=== PATIENT | male | born 1960 | race Caucasian/White ===

== ENCOUNTER 2017-12-01 12:08 | Emergency (ER) | payer OTHER ==
[2017-12-01 12:14] VITALS: BP 180/100
--- NOTE | 2017-12-01 12:32 | EDPHY ---
H & P Stated Complaint: Rash and blisters to hands Time Seen by Provider: 12/01/17 12:31 HPI/ROS: HPI: This is a 57-year-old male who presents with Chief Complaint: Rash and blisters to hands Location: Right hand Quality: Rash Duration: 48 hr Signs and Symptoms: no fever, no nausea, no vomiting, no diarrhea, no urinary symptoms, no chest pain, no shortness of breath, no wheezing, no cough, no sore throat, no neck stiffness, no joint pain, no swollen glands, no ear pain, no rash Timing: Acute, spreading Severity: Mild Context: Patient is right-hand dominant, presents with complaints of developing 1 blister on the side of his right middle digit 48 hr ago. He reports that the blister popped and has since spread to the base of his 3rd finger and extending into the palm of his hand. He reports that there is blister type rash. He now has 1 small blister on his left 2nd digit. He denies any recent fever, upper respiratory symptoms. He has no rash or spots inside his mouth or on his feet. He is concerned as his partner has a history of MRSA infection. 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 Modifying Factors: None Comment: ROS: A comprehensive 10 system review of systems is otherwise negative aside from elements mentioned in the history of present illness. MEDICAL/SURGICAL/SOCIAL HISTORY: Medical history: Hypothyroidism, hypertension, obstructive sleep apnea Surgical history: Herniorrhaphy Social history: Tobacco user. Family history noncontributory. CONSTITUTIONAL: Extremely polite and cooperative, smells of tobacco smoke, middle-aged white male, awake and alert, no obvious distress HEENT: Atraumatic and normocephalic, PERRL, EOMI. Nares patent; no rhinorrhea; no nasal mucosal edema. Tympanic membranes clear. Oropharynx clear, no oral petechiae/blister, no exudate and moist pink mucosa. Airway patent. No lymphadenopathy. No meningismus. Cardiovascular: Normal S1/S2, regular rate, regular rhythm, without murmur rub or gallop. PULMONARY/CHEST: Symmetrical and nontender. Clear to auscultation bilaterally. Good air movement. No accessory muscle usage. ABDOMEN: Soft, nondistended, nontender, no rebound, no guarding, no peritoneal signs, no masses or organomegaly. No CVAT. EXTREMITIES: 2/2 pulses, strength 5/5, no deformities, no clubbing, no cyanosis or edema. NEUROLOGICAL: no focal neuro deficits. GCS 15. SKIN: Warm and dry, right hand base of middle digit shows 2-3 blisters that her open with surrounding erythema and scaliness. There approximately 5-10 small pinpoint blisters located on the right palm and 1 small pinpoint blister noted on left index finger. Good capillary refill. Source: Patient Exam Limitations: No limitations - Personal History Current Tetanus/Diphtheria Vaccine: Yes - Medical/Surgical History Hx Asthma: No Hx Chronic Respiratory Disease: No Hx Diabetes: No Hx Cardiac Disease: No Hx Renal Disease: No Hx Cirrhosis: No Hx Alcoholism: No Hx HIV/AIDS: No Hx Splenectomy or Spleen Trauma: No Other PMH: Surgery: hernia. Medical: Thyroid, sleep apnea, HTN - Social History Smoking Status: Current every day smoker Constitutional: Initial Vital Signs Temperature (C) 36.7 C 12/01/17 12:10 Heart Rate 83 12/01/17 12:10 Respiratory Rate 16 12/01/17 12:10 Blood Pressure 180/100 H 12/01/17 12:10 O2 Sat (%) 91 L 12/01/17 12:10 O2 Delivery Mode Room Air Allergies/Adverse Reactions: No Known Allergies Allergy (Unverified 12/01/17 12:10) Home Medications: Medication Instructions Recorded Cephalexin [Keflex (*)] 500 mg PO QID #28 cap 12/01/17 Lisinopril 12/01/17 Prilosec 12/01/17 Sulfamethox/Tmp 800/160 mg 1 tab PO BID #14 tab 12/01/17 [Bactrim Ds] Synthroid 12/01/17 Xanax 12/01/17 Medical Decision Making ED Course/Re-evaluation: Vital signs reviewed. Patient has a history of MRSA exposure. Suspect viral exanthem like hand-foot- mouth disease but will treat for secondary bacterial infection with Keflex and Bactrim. Patient was consult to follow up with primary care provider in 5-7 days if no improvement. This patient was seen under the supervision of my secondary supervising physician. I evaluated care for this patient independently. Discussed this patient with Dr. Whitling. Differential Diagnosis: Differential diagnosis includes but is not limited to atopic dermatitis, skin ulceration, impetigo, dyshidrotic eczema, bullous pemphigoid, herpetiform is erythema, systemic lupus erythematosus, varicella, herpes simplex, miliaria. Departure - Departure Disposition: Home, Routine, Self-Care Clinical Impression: Exposure to methicillin resistant Staphylococcus aureus, Rash of hands Condition: Good Instructions: Impetigo (ED), Hand, Foot, and Mouth Disease (ED), Chlorhexidine (On the skin) Additional Instructions: Keep hands covered with a glove until rash and all blisters have resolved. Take Bactrim and Keflex as directed. Do not skip a dose. Wash with antibacterial soap daily. Use ChloraPrep prep or chlorhexidine rinse x1. Return to the ER immediately if you experience redness, red streaks, have fevers /chills, flu like symptoms, limited range of motion, or any other symptoms that concern you. Referrals: DAMARIS JUDD [Other] - 5-7 days, if not improved Stand Alone Forms: Work Limited Duty Prescriptions: Cephalexin [Keflex (*)] 500 mg PO QID #28 cap Sulfamethox/Tmp 800/160 mg [Bactrim Ds] 1 tab PO BID #14 tab
== END 2017-12-01 12:56 | disposition home or self-care (01) ==
DX: L01.00 Impetigo, unspecified (principal); B08.4 Enteroviral vesicular stomatitis with exanthem

== ENCOUNTER 2018-05-06 12:40 | Emergency (ER) | payer OTHER ==
[2018-05-06] MEDS ORDERED: METOCLOPRAMIDE 10 MG/2 ML VIAL IVP ONE (13:34)
[2018-05-06] MEDS ORDERED: DEXAMETHASONE 10 MG/ML VIAL IVP ONE (13:34)
[2018-05-06] MEDS ORDERED: NS 1,000 ML IV ONE (13:34)
[2018-05-06] MEDS ORDERED: LORazepam 2 MG/ML INJ IVP ONE (13:34)
--- NOTE | 2018-05-06 13:34 | EDPHY ---
H & P Stated Complaint: Migraine Time Seen by Provider: 05/06/18 13:29 HPI/ROS: HPI: This is a 57-year-old male who presents with Chief Complaint: Migraine Location: Frontal headache Quality: Pain Duration: Since awakening this morning Signs and Symptoms: no fever, + nausea, + vomiting, + photophobia, + noise sensitivity, no neck stiffness, no ear pain, no tinnitus, no nasal congestion, no sinus pressure, no weakness, no radiation, no aura, no trauma Timing: Acute, constant Severity: Moderate Context: Patient reports that he woke up this morning with bilateral frontal headache that "he has never had this type of pain before." No prior history of migraines but he does have headaches every several months." Denies any fever, upper respiratory symptoms, neck stiffness, sinus congestion. He reports that he feels nauseous and has vomited twice with associated photophobia noise sensitivity. Admits that he has stress at work but "no more than usual." He tried taking Tylenol this morning but vomited the medication up. Patient able to drive himself to the emergency room. Last eye exam was 2 years ago. Wears glasses. Reports "tunnel like vision at times." Modifying Factors: See above Comment: ROS: A comprehensive 10 system review of systems is otherwise negative aside from elements mentioned in the history of present illness. MEDICAL/SURGICAL/SOCIAL HISTORY: Medical history: Hypothyroidism, obstructive sleep apnea, hypertension Surgical history: Herniorrhaphy Social history: Employed. Family history noncontributory. CONSTITUTIONAL: Patient is nontoxic in appearance, overweight, anxious, awake and alert, no obvious distress HEENT: Atraumatic and normocephalic, PERRL, EOMI. Wears glasses. Nares patent ; no rhinorrhea; no nasal mucosal edema. Tympanic membranes clear. Oropharynx clear, no exudate and moist pink mucosa. Airway patent. No lymphadenopathy. No meningismus. Cardiovascular: Normal S1/S2, regular rate, regular rhythm, without murmur rub or gallop. PULMONARY/CHEST: Symmetrical and nontender. Clear to auscultation bilaterally. Good air movement. No accessory muscle usage. ABDOMEN: Soft, nondistended, nontender, no rebound, no guarding, no peritoneal signs, no masses or organomegaly. No CVAT. EXTREMITIES: 2/2 pulses, strength 5/5, no deformities, no clubbing, no cyanosis or edema. NEUROLOGICAL: no focal neuro deficits. GCS 15. Cranial nerves 2-12 grossly intact. Normal speech. Normal [id number] test. Normal [id number]-[id number] test. Normal cerebellar testing. SKIN: Warm and dry, no erythema. no rash. Good capillary refill. Source: Patient Exam Limitations: No limitations - Personal History Current Tetanus/Diphtheria Vaccine: Yes - Medical/Surgical History Hx Asthma: No Hx Chronic Respiratory Disease: No Hx Diabetes: No Hx Cardiac Disease: No Hx Renal Disease: No Hx Cirrhosis: No Hx Alcoholism: No Hx HIV/AIDS: No Hx Splenectomy or Spleen Trauma: No Other PMH: Surgery: hernia. Medical: Thyroid, sleep apnea, HTN - Social History Smoking Status: Heavy smoker Constitutional: Initial Vital Signs Temperature (C) 36.9 C 05/06/18 12:45 Heart Rate 64 05/06/18 12:45 Respiratory Rate 18 05/06/18 12:45 Blood Pressure 160/113 H 05/06/18 12:45 O2 Sat (%) 94 05/06/18 12:45 O2 Delivery Mode Room Air Allergies/Adverse Reactions: No Known Allergies Allergy (Unverified 05/06/18 12:47) Home Medications: Medication Instructions Recorded Cephalexin [Keflex (*)] 500 mg PO QID #28 cap 12/01/17 Lisinopril 12/01/17 Prilosec 12/01/17 Sulfamethox/Tmp 800/160 mg 1 tab PO BID #14 tab 12/01/17 [Bactrim Ds] Synthroid 12/01/17 Xanax 12/01/17 Acet/Caffeine/Buta Fioricet 1 each PO Q6 PRN #10 tab 05/06/18 [Fioricet (*)] Ondansetron Odt [Zofran Odt 4 mg 4 mg PO Q4 PRN #12 tab 05/06/18 (*)] Medical Decision Making - Diagnostics Imaging Results: Imaging Impressions Head CT 05/06/18 13:34 Impression: No acute intracranial process. Low-lying cerebellar tonsils. ED Course/Re-evaluation: Vital signs reviewed and show elevated blood pressure likely due to pain. Due to different headache than norm, head CT imaging ordered IV access, medications ordered Given 1 L normal saline, IV Decadron, IV Ativan, IV Reglan, IV Benadryl 1420: Called by radiologist, Dr. Marcsu, reports that CT scan shows no acute intracranial process. 1424: Repeat blood pressure 130/74 1524: Notified by RN that patient is feeling better and requesting to be discharged home. Life partner will pick him up. Follows in [place], [place] at the [facility]. This patient was seen under the supervision of my secondary supervising physician. I evaluated care for this patient with attending. Discussed this patient with Dr. Albarran. Differential Diagnosis: Headache including but not limited to subarachnoid hemorrhage, migraine headache , tension headache and infectious causes such as meningitis, pharyngitis and sinusitis. - Data Points Medications Given: Discontinued Medications Dexamethasone (Decadron Injection) 10 mg IVP EDNOW ONE Stop: 05/06/18 13:35 Last Admin: 05/06/18 13:58 Dose: 10 mg Diphenhydramine HCl (Benadryl Injection) 25 mg IVP EDNOW ONE Stop: 05/06/18 13:35 Last Admin: 05/06/18 13:58 Dose: 25 mg Sodium Chloride (Ns) 1,000 mls @ 0 mls/hr IV ONCE ONE; Wide Open PRN Reason: Protocol Stop: 05/06/18 13:35 Last Admin: 05/06/18 13:59 Dose: 1,000 mls Lorazepam (Ativan Injection) 1 mg IVP EDNOW ONE Stop: 05/06/18 13:35 Last Admin: 05/06/18 13:58 Dose: 1 mg Metoclopramide HCl (Reglan Injection) 10 mg IVP EDNOW ONE Stop: 05/06/18 13:35 Last Admin: 05/06/18 13:58 Dose: 10 mg Departure - Departure Disposition: Home, Routine, Self-Care Clinical Impression: Migraine variants, not intractable Condition: Good Instructions: Butalbital/Acetaminophen/Caffeine (By mouth), Migraine Headache ( ED) Additional Instructions: Rest as much as possible until you are feeling better. Consume a minimum of 8-10 glasses of water or electrolyte fluid replacement drinks that include Gatorade, Powerade, Pedialyte. Eat a bland diet for the next 48 hours and then slowly advance as tolerated. Take Zofran 1 tab every 4 hours as needed for nausea, vomiting. Take Fioricet 1 tab every 6 hr as needed for headache not relieved by Tylenol or ibuprofen. Follow-up with primary care provider and get referral for Neurology for evaluation of new onset migraine headaches. Referrals: DAMARIS JUDD [Other] - As per Instructions Prescriptions: Acet/Caffeine/Buta Fioricet [Fioricet (*)] 1 each PO Q6 PRN #10 tab PRN Reason: Headache, Migrane Ondansetron Odt [Zofran Odt 4 mg (*)] 4 mg PO Q4 PRN #12 tab PRN Reason: Nausea/Vomiting, Use 1st
[2018-05-06 15:35] VITALS: BP 162/106
== END 2018-05-06 15:40 | disposition home or self-care (01) ==
DX: G43.909 Migraine, unspecified, not intractable, without status migrainosus (principal); I10 Essential (primary) hypertension; E03.9 Hypothyroidism, unspecified; E86.9 Volume depletion, unspecified
CPT/HCPCS: 96374; J1100; J1200; J2060; J2765